=== PATIENT | female | born 1995 | race Caucasian/White ===

== ENCOUNTER 2024-03-13 20:29 | Emergency (ER) | payer MEDICAID, SELFPAY ==
--- NOTE | ~2024-03-13 | CT_ITS ---
EXAMINATION: CT ABDOMEN AND PELVIS WITHOUT CONTRAST CLINICAL INFORMATION: Lower abdominal pain COMPARISON: None available. TECHNIQUE: Multidetector volumetric imaging was performed from the superior aspect of the liver through the pubic symphysis. Sagittal and coronal reformatted images were obtained on the technologist's workstation. This CT examination was performed using dose optimization techniques as appropriate, variously including the following: *Automated exposure control *Adjustment of mA and/or kV according to patient size (this includes techniques or standardized protocols for targeted exams where dose is matched to indication/reason for exam; i.e. extremities or head) *Use of iterative reconstruction technique DLP: 472 mGy-cm FINDINGS: LUNG BASES: The visualized lung bases are unremarkable. LIVER, GALLBLADDER, AND BILIARY TREE: The liver is normal in size, shape, and attenuation. No focal hepatic lesion or biliary ductal dilatation is present. The gallbladder is unremarkable with no evidence of radiopaque gallstones, gallbladder wall thickening, or obvious pericholecystic inflammatory changes. PANCREAS: Unremarkable. SPLEEN: Unremarkable. ADRENAL GLANDS: Unremarkable. KIDNEYS AND URETERS: The kidneys are normal in size, shape, and attenuation. No hydronephrosis, hydroureter, or calculi seen. No perinephric stranding. BLADDER: Unremarkable. GASTROINTESTINAL TRACT: The small and large bowel are notable for fluid-filled bowel loops throughout without evidence of any dilatation or definitive bowel wall thickening on this nonenhanced study. Moderate amount stool throughout the colon. No free fluid.. The appendix is unremarkable. ABDOMINAL WALL: No significant hernia is appreciated. LYMPH NODES: Normal. VASCULAR: Unremarkable. PELVIC VISCERA: Unremarkable. OSSEOUS STRUCTURES: Unremarkable. CT/CT abdomen pelvis wo IV con IMPRESSION: Nonspecific fluid-filled bowel loops which can be seen with enterocolitis. No obstruction. Normal appendix. Limitation due to lack of IV contrast. Fleischner guidelines were followed. Electronically signed by: Kyle Cevallos MD 03/13/2024 10:10 PM CINDY
[2024-03-13 20:33] VITALS: BP 95/62; PULSE 109; RESP 16; TEMP 35.8; O2SAT 99; BMI 21.3
[2024-03-13] MEDS: Ondansetron ODT 4 MG TAB.RAPDIS TRANSLINGU (20:39)
[2024-03-13 20:52] LABS: MANUAL DIFF FLAG NO
--- NOTE | 2024-03-13 21:03 | ED.ABDPAIN ---
HPI - Abdominal Pain General Chief Complaint: Abdominal Pain Stated Complaint: Vomiting/Diarrhea Time Seen by Provider: 03/13/24 20:47 Source: patient and family Mode of arrival: ambulatory Limitations: no limitations History of Present Illness ED Provider: DR. Adams HPI narrative: 28-year-old female otherwise healthy came in for evaluation of diffuse abdominal pain associated with nausea, vomiting, and nonbloody watery diarrhea symptoms started earlier today, patient was exposed to a sick contacts with similar symptoms earlier today, no exposure to bad food, no recent use of antibiotics, no recent travel. No fever, no chills. No history of intra-abdominal surgery in the past. Related Data Allergies Allergy/AdvReac Type Severity Reaction Status Date / Time No Known Allergies Allergy Verified 03/13/24 20:36 Review of Systems Review of Systems All other systems are reviewed and are negative Constitutional: Reports as per HPI and Reports no additional constitutional complaints Eyes: Reports as per HPI and Reports no additional eye complaints Reports system reviewed and no additional complaints, except as documented Cardiovascular: Reports as per HPI and Reports no additional cardiovascular complaints Respiratory: Reports as per HPI and Reports no additional respiratory complaints Gastrointestinal: Reports as per HPI and Reports no additional gastrointestinal complaints Genitourinary: Reports no additional female genitourinary complaints Musculoskeletal: Reports no additional musculoskeletal complaints Skin/Breast: Reports system reviewed and no additional complaints, except as docu Psychiatric: Reports no additional psychiatric complaints Endocrine: Reports no additional endocrine complaints Hematologic/Lymphatic: Reports no additional hematologic/lymphatic complaints Allergic/Immunologic: Reports no additional allergic/immunologic complaints Reports system reviewed and no additional complaints, except as documented and Reports Abnormal speech present [facility] Social History Social History Advance Directives: No Do you have a plan to hurt others: No Plan Patient : No Physical Exam ED Vital Signs: Vital Signs - 24 hr 03/13/24 20:33 Temperature 96.5 F L Pulse Rate 109 H Respiratory Rate 16 Blood Pressure 95/62 Pulse Oximetry 99 Oxygen Delivery Method Room Air BMI result Body Mass Index 21.3 Vital signs have been reviewed and appear to be correct. Blood pressure elevated. Heart rate normal. Respiratory rate normal. Temperature normal. Oxygen saturation normal. Appearance: Alert. Oriented X3. No acute distress. Head: Normal external exam. Normocephalic. Atraumatic. No Pérez signs noted. No raccoon eyes noted Eyes: PERRLA. EOMI. Conjunctiva and sclera normal. Eyelids normal. ENT: TM's Normal. Pharynx normal. Uvula midline. Moist mucous membranes. No trismus noted. No drooling noted. No muffled voice noted. Neck: Normal inspection. Neck supple. FROM. No adenopathy. Thyroid Normal. No meningeal signs. No neck mass noted. CVS: Normal heart rate and rhythm. Heart sound normal. No murmurs noted. Pulses normal throughout. Respiratory: No respiratory distress. Painless inspiration. Breath sounds normal. No wheezes/rales/rhonchi noted. Chest nontender. No accessory muscle usage noted or decreased air movement noted. Abdomen: Epigastric tenderness, no rebound tenderness, no guarding. Bowel sounds normal in all 4 quadrants. No distention noted. No organomegaly noted. No visible injury noted. Back: No CVA tenderness. Full range of motion noted. Skin: Skin warm and dry. Normal skin color. Normal skin turgor. No rashes/lesions/lacerations noted. Extremities: No lower extremity edema. Extremities exhibit normal range of motion. Extremities nontender. Neuro: Oriented X 3. Cranial nerve exam: II-XII are grossly intact No motor deficit. No sensory deficit. Reflexes normal. Course Reevaluation(s) Reevaluation #1: Feels better, able to tolerate p.o. intake, improvement of abdominal exam, CT abdomen pelvis showed normal appendix. Time: 23:00 Medical Decision Making Differential Diagnosis Differential Diagnoses: The differential diagnosis associated with the presentation includes (Colitis, diverticulitis, acute appendicitis, , UTI, gastroenteritis, food poisoning, dehydration, electrolyte derangement.) Admission/Observation Consideration of admission/observation: Escalation of care including admission/observation considered Lab Data MDM Lab Attestation statement: I reviewed the patient's lab results. 03/13/24 20:47 03/13/24 20:47 Labs: Lab Results 03/13/24 Range/Units 20:47 WBC 13.8 H (4.8-10.8) X10*3/uL RBC 4.47 (4.20-5.50) X10*6/uL Hgb 13.6 (12.0-16.0) g/dl Hct 39.3 (37.0-47.0) % MCV 87.9 (80.0-98.0) fL MCH 30.4 (27.0-33.0) pg MCHC 34.6 (31.0-35.0) g/dl RDW 12.2 (11.0-16.0) % Plt Count 313 (160-400) X10*3/uL MPV 10.3 (9.4-12.3) fL Immature Gran % (Auto) 0.4 (0.0-0.4) % Neut % (Auto) 87.3 H (45-73) % Lymph % (Auto) 6.0 L (20-40) % Meeker % (Auto) 3.6 (2-11) % Eos % (Auto) 2.3 (0-4) % Baso % (Auto) 0.4 (0-2) % Lymph # (Auto) 0.8 L (1.2-4.9) X10*3/uL Meeker # (Auto) 0.5 (0.1-1.2) X10*3/uL Eos # (Auto) 0.3 (0.0-0.4) X10*3/uL Baso # (Auto) 0.1 (0.0-0.2) X10*3/uL Abs Immat Gran (auto) 0.05 H (0.00-0.03) X10*3/uL Absolute Neuts (auto) 12.0 H (2.0-8.3) x10*3/uL Absolute Nucleated RBC 0.000 (0.0-0.012) X10*3/uL Nucleated RBC % (auto) 0.0 (0.0-0.2) /100WBC Sodium 142 (135-145) mmol/L Potassium 3.5 (3.3-5.1) mmol/L Chloride 109 H (96-108) mmol/L Carbon Dioxide 22 (22-29) mmol/L Anion Gap 15 (12-20) BUN 19 H (9-16) mg/dL Creatinine 0.84 (0.5-1.4) mg/dL Estim Creat Clear Calc 101.7 Estimated GFR > 60 Random Glucose 138 H (60-115) mg/dL Calcium 9.4 (8.4-10.2) mg/dL Total Bilirubin 0.4 (0.0-1.0) mg/dL AST 26 (5-31) U/L ALT 22 (0-31) U/L Alkaline Phosphatase 59 (39-117) U/L Total Protein 8.1 H (6.5-8.0) g/dL Albumin 4.8 (3.5-5.0) g/dL Lipase 78 (8-78) U/L Beta HCG, Quant < 2 mIU/mL Independent Interpretation I performed an independent interpretation of an: CT Scan (Abdomen pelvis: Nonspecific fluid-filled bowel loops which can be seen with enterocolitis. No obstruction. Normal appendix. Limitation due to lack of IV contrast. ) Radiology Impression Discussion of test interpretation with radiology: I have reviewed the radiologist's reading. Medications Administered Discontinued Medications Generic Name Dose Route Start Last Admin Trade Name Freq PRN Reason Stop Dose Admin Al Hydroxide/Mg Hydroxide 30 ml 03/13/24 21:01 03/13/24 21:23 Magnesium Hydrox/Alum Hydrox 30 Ml Oral.Susp PO 03/13/24 21:02 30 ml ONCE ONE Administration Famotidine 20 mg 03/13/24 21:01 03/13/24 21:23 Famotidine/Pf 20 Mg/2 Ml Vial IVPUSH 03/13/24 21:02 20 mg ONCE ONE Administration Sodium Chloride 1,000 mls @ 999 mls/hr 03/13/24 21:01 03/13/24 21:23 Ns IV 03/13/24 22:01 999 mls/hr .Q1H1M ONE Administration Loperamide HCl 2 mg 03/13/24 21:01 03/13/24 21:23 Loperamide Hcl 2 Mg Capsule PO 03/13/24 21:02 2 mg ONCE ONE Administration Ondansetron HCl 4 mg 03/13/24 20:38 03/13/24 20:39 Ondansetron Odt 4 Mg Tab.Rapdis TRANSLINGU 03/13/24 20:39 4 mg ONCE ONE Administration Ondansetron HCl 4 mg 03/13/24 21:01 03/13/24 21:23 Ondansetron Hcl 4 Mg/2 Ml Vial IVPUSH 03/13/24 21:02 4 mg ONCE ONE Administration Discharge Plan Discharge Clinical Impression: Gastroenteritis Patient Disposition: Home, Self-Care Instructions: Gastroenteritis (ED) Print Language: Tongan
[2024-03-13 21:13] LABS: Basophils Absolute Auto 0.1 X10*3/uL (0.0-0.2); Basophils Percent Auto 0.4 % (0-2); Eosinophils Absolute Auto 0.3 X10*3/uL (0.0-0.4); Eosinophils Percent Auto 2.3 % (0-4); Hematocrit 39.3 % (37.0-47.0); Hemoglobin 13.6 g/dl (12.0-16.0); Imm Gran Abs Auto 0.05 X10*3/uL (0.00-0.03); Imm Gran Pct Auto 0.4 % (0.0-0.4); Lymphocytes Absolute Auto 0.8 X10*3/uL (1.2-4.9); Mean Corpuscular HGB Conc 34.6 g/dl (31.0-35.0); Mean Corpuscular Hemoglobin 30.4 pg (27.0-33.0); Mean Corpuscular Volume 87.9 fL (80.0-98.0); Mean Platelet Volume 10.3 fL (9.4-12.3); Monocytes Absolute Auto 0.5 X10*3/uL (0.1-1.2); Monocytes Percent Auto 3.6 % (2-11); Neutrophils Percent Auto 87.3 % (45-73); Platelet Count 313 X10*3/uL (160-400); Red Blood Count 4.47 X10*6/uL (4.20-5.50); Red Cell Distribution Width 12.2 % (11.0-16.0); White Blood Count 13.8 X10*3/uL (4.8-10.8)
[2024-03-13 21:20] LABS: Alanine Aminotransferase 22 U/L (0-31); Albumin Level 4.8 g/dL (3.5-5.0); Alkaline Phosphatase 59 U/L (39-117); Anion Gap 15 (12-20); Aspartate Amino Transferase 26 U/L (5-31); Bilirubin Total 0.4 mg/dL (0.0-1.0); Blood Urea Nitrogen 19 mg/dL (9-16); Calcium 9.4 mg/dL (8.4-10.2); Carbon Dioxide 22 mmol/L (22-29); Chloride 109 mmol/L (96-108); Creatinine Clr Calc Pharmacy 101.7; Estimated Glomerular Filt Rate > 60; Glucose Random 138 mg/dL (60-115); Lipase 78 U/L (8-78); Potassium 3.5 mmol/L (3.3-5.1); Sodium 142 mmol/L (135-145); Total Protein 8.1 g/dL (6.5-8.0)
[2024-03-13] MEDS: 0.9 % Sodium Chloride 1,000 ML 999 ML IV (21:23)
[2024-03-13] MEDS: Magnesium Hydrox/Alum Hydrox 30 ML ORAL.SUSP PO (21:23)
[2024-03-13] MEDS: Loperamide HCl 2 MG CAPSULE PO (21:23)
[2024-03-13] MEDS: ondansetron HCL 4 MG/2 ML VIAL IVPUSH (21:23)
[2024-03-13] MEDS: Famotidine/PF 20 MG/2 ML VIAL IVPUSH (21:23)
[2024-03-13 21:28] LABS: HCG Quantitative < 2 mIU/mL
--- NOTE | 2024-03-13 21:32 | PC.NURSE ---
Patient presents to ED for evaluation of nausea, vomiting x7 episodes since 1500 and diarrhea that started about an hour ago. Patient also reports diffuse abdominal pain. 20 G IV line established in R AC, patient medicated per MAY. Patient is able to make her needs known, call carrasco placed within patient's reach.
[2024-03-14] MEDS: ondansetron HCL 4 MG/2 ML VIAL IVPUSH (00:06)
[2024-03-14 01:10] VITALS: BP 110/64; PULSE 93; RESP 16; TEMP 36.2; O2SAT 97
== END 2024-03-14 01:11 | disposition home or self-care (01) ==
PROVIDERS: Emergency Provider Emergency Medicine; PCP Nurse Practitioner
DX: K52.9 Noninfective gastroenteritis and colitis, unspecified (principal); R10.2 Pelvic and perineal pain; Z79.899 Other long term (current) drug therapy
CPT/HCPCS: 36415; 74176; 80053; 83690; 84702; 85025; 96374; 96375; 96376; 99284; J2405